=== PATIENT | male | born 1985 | race Caucasian/White ===

== ENCOUNTER 2019-03-26 12:28 | Emergency (ER) | payer MEDICAID ==
[~2019-03-26] VITALS: Ht 170.2 cm; Wt 125.2 kg
[2019-03-26 12:34] VITALS: Ht 170.2 cm; Wt 125.2 kg
[2019-03-26 13:18] LABS: BASOPHIL % 0.4 % (0-2); PLATELET COUNT 257 x10^3mcL (130-400); RED CELL DISTRIBUTION WIDTH 13.6 % (11.5-14.5)
[2019-03-26 13:32] LABS: CALCIUM 9.3 mg/dL (8.5-10.1); CARBON DIOXIDE 24.8 mmol/L (21-32); CHLORIDE SERUM 102 mmol/L (98-107); CREATININE SERUM 0.9 mg/dL (0.7-1.3); GFR1 > 60 mL/min; GLUCOSE SERUM 142 mg/dL (74-106); POTASSIUM SERUM 4.3 mmol/L (3.5-5.1); SODIUM SERUM 138 mmol/L (136-145)
[2019-03-26 13:37] LABS: ALBUMIN 3.9 g/dL (3.4-5.0); ALKALINE PHOSPHATASE 71 U/L (46-116); ALT/SGPT 79 U/L (16-63); AST/SGOT 28 U/L (15-37); BILIRUBIN TOTAL 0.38 mg/dL (0.20-1.00); TOTAL PROTEIN, SERUM 8.5 g/dL (6.4-8.2)
[2019-03-26 15:17] VITALS: BP 128/81
== END 2019-03-26 15:18 | disposition home or self-care (01) ==
LOC: ED 12:28
PROVIDERS: Specialist
DX: F10.239 Alcohol dependence with withdrawal, unspecified (principal)
CPT/HCPCS: 83880; J2060; J7030; Q0092